=== PATIENT | female | born 1955 | race Caucasian/White ===

== ENCOUNTER 2018-11-30 08:45 | Day surgery (SDC) | payer OTHER ==
[2018-11-18 13:16] VITALS: BMI 29.9
--- NOTE | 2018-11-26 13:29 | HP ---
Admitting History and Physical - Primary Care Physician PCP: Nola Ramírez - Admission Chief Complaint: right upper back malignant melanoma of skin History of Present Illness: Patient is a 63 yo female noted to have a right upper back irregular mole accom by itching. The rim roller setter performed a shave bx (07/2018) which revealed a .3 mm melanoma Rico level II. The lesion extends into the lateral margin. The patient is now presenting for a WE of this right upper back melanoma with reconstruction. History Source: Patient Limitations to Obtaining History: No Limitations - Past Medical History Cardiovascular: Yes: HTN, Hyperlipdemia - Past Surgical History Past Surgical History: Yes: Hysterectomy (1983) - Smoking History Smoking history: Never smoked Aproximately how many cigarettes per day: 0 - Alcohol/Substance Use Hx Alcohol Use: Yes (rare) Home Medications - Allergies Allergies/Adverse Reactions: Allergies Allergy/AdvReac Type Severity Reaction Status Date / Time No Known Allergies Allergy Verified 11/18/18 13:01 - Home Medications Home Medications: Ambulatory Orders Aspirin [ASA] 81 mg PO DAILY 01/15/12 Amlodipine Besylate 5 mg PO DAILY 11/18/18 Atorvastatin Calcium 80 mg PO HS 11/18/18 Hydrochlorothiazide [Hctz -] 25 mg PO DAILY 11/18/18 Losartan Potassium 100 mg PO DAILY 11/18/18 Family Medical History Family History: Unremarkable Review of Systems - Review of Systems Integumentary: reports: Lesions (right upper back irregular mole with itching) Physical Examination Constitutional: Yes: Well Nourished Integumentary: Yes: Other (right upper back 12 x 12 mm irregular pigmented lesion with a scar from shave bx. No other satellite lesions noted on the skin. ) Problem List - Problems (1) Malignant melanoma Code(s): C43.9 - MALIGNANT MELANOMA OF SKIN, UNSPECIFIED Qualifiers: Laterality: right Assessment/Plan Plan: WE of right upper back malignant melanoma with reconstruction.
[2018-11-30] MEDS ORDERED: ONDANSETRON 4 MG/2 ML VIAL IVPUSH PRN (09:55)
[2018-11-30] MEDS ORDERED: KETOROLAC TROMETHAMINE 30 MG/1 ML VIAL IVPUSH PRN (09:55)
[2018-11-30] MEDS ORDERED: DEXTROSE 5%-0.45% SALINE 1,000 ML IV SCH (10:00)
[2018-11-30 11:04] VITALS: TEMP 97.6
--- NOTE | 2018-11-30 11:08 | OP ---
DATE OF OPERATION: 11/30/2018 PROCEDURE: Flap reconstruction of posterior trunk wound status post excision of malignant melanoma. PREOPERATIVE DIAGNOSIS: Malignant melanoma with resulting wound to trunk after wide local excision. POSTOPERATIVE DIAGNOSIS: Malignant melanoma with resulting wound to trunk after wide local excision. The procedure is performed in combination with a wide local excision of malignant melanoma to the posterior trunk by Dr. Nola Ramírez and his team. That portion of the procedure will be dictated separately by Dr. Nloa Ramírez. ANESTHESIA: Monitored sedation with a total of 20 mL of 1% lidocaine with 1:100,000 epinephrine injected locally into the tissues. I am called into the procedure at the completion of the wide local excision. At this point, the wound is copiously irrigated with normal saline and hemostasis meticulously achieved with Bovie cautery. The closure is positive for with superior and inferior advancement flaps excising Burow triangle laterally and medially for the closure to allow for advancement. The donor sites are closed with a series of interrupted buried deep dermal 3-0 Vicryl suture followed by a series of interrupted 3-0 Monocryl suture. The closure over the defect of the flaps is then closed 1st with a series of deep space occupying fascial sutures to the deep muscular surface with a series of interrupted buried 3.30 Vicryl suture. The skin is then closed with a series of interrupted buried deep dermal 3-0 Monocryl sutures followed by a running subcuticular 3-0 Monocryl suture. All tissues are pink and viable. Dressing is applied with full-length Steri-Strips 1/2 inch with 4 x 4 gauze and Hypafix tape. It should be noted that the flaps were mobilized in the subfascial plane both superiorly and inferiorly prior to closure and space obliteration. SHERINE HOOD M.D. [id number]
[2018-11-30 12:50] VITALS: BP 110/62; PULSE 64
--- NOTE | 2018-11-30 18:50 | OP ---
DATE OF OPERATION: 11/30/2018 PREOPERATIVE DIAGNOSIS: Right upper back melanoma. POSTOPERATIVE DIAGNOSIS: Right upper back melanoma. PROCEDURE: Right upper back radical wide excision. ANESTHESIA: IV sedation with local. ATTENDING SURGEON: Dominga Ramírez MD CONFIGURATION MANAGEMENT ARCHITECT: FRANCISCO Ramirez ESTIMATED BLOOD LOSS: Minimal. COMPLICATIONS: None. PROCEDURE: Patient was made aware of the risks and benefits of the procedure and consented. She was placed in a supine position on the operative table, and after IV sedation was administered, she was placed in the left lateral decubitus position and the operative site was prepped and draped in the usual sterile fashion. A transverse vertical incision was marked out and local anesthesia was administered with 1% lidocaine with epinephrine. Using sharp dissection, the incision was made and using electrocautery, taken down to the pectoralis fascia. This was then taken off the muscle and submitted with a short suture superior, long suture lateral. The wound was copiously irrigated with normal saline, hemostasis maintained by electrocautery. The procedure was then turned over to Dr. Santo Pretty, who did a plastic surgery closure. He will dictate that portion of the procedure. DOMINGA RAMÍREZ M.D. [id number]
--- NOTE | 2018-12-07 09:54 | PATH ---
Surgical Pathology Report Patient Name: ANTHONY MOE [facility]. Rec. #: [id number] /Age/Gender: 1955 (Age: 63) / F Account: [id number] Location: [facility] Taken: 11/30/2018 Received: 11/30/2018 Reported: 12/07/2018 Physicians: Nola Ramírez M.D. Specimen(s) Received RIGHT UPPER BACK WIDE EXCISION OF MELANOMA Clinical History Right upper back, melanoma Final Diagnosis BACK, RIGHT UPPER, WIDE EXCISION OF MELANOMA: MELANOMA IN SITU (MIS). (SEE NOTE) NO RESIDUAL INVASION IS IDENTIFIED. SURGICAL MARGINS ARE WIDELY CLEAR OF MIS (> 1 CM). DERMIS SHOWING SCAR WITH CHANGES OF PRIOR BIOPSY. SEBORRHEIC KERATOSIS. PATHOLOGIC STAGE (pTNM): pT1a (see note) Note: "pT" stage is based on prior biopsy from outside institution, which showed predominantly melanoma in situ with a 0.3 mm focus of invasion in the papillary dermis (0/mm2 mitoses, no ulceration; case # [id number]; our slide review ). Immunostains performed at [place], [place] ([id number]) show the following results: Melan-A and HMB-45 immunostains highlight the foci of melanoma in situ. No dermal invasion is identified. Electronically Signed Ria Schmitt M.D. Gross Description Received in formalin, labeled "right upper back, wide excision of melanoma." It is 7.2 x 3.7 cm ellipse of light wong skin excised to a depth of 1.8 cm. A long suture indicates the lateral margin and a short suture indicates the superior margin, per the surgeon. The surface of the skin displays two brown-black flat lesions, measuring 0.8 x 0.5 cm (lesion #1) and 0.6 x 0.5 cm (lesion #2), respectively. The margins are widely clear (>/= 1 cm) of the lesions. The specimen is inked as follows: Superior-blue, inferior-green, lateral tip-yellow, medial tip-red, deep-black. Cube Cutter sections are submitted in six cassettes as follows: 1,2- lesion #1; 3-deep, superior and inferior margins surrounding lesion #1; 4-lesion #2 with deep, superior and inferior margins; 5-medial tip; 6-lateral tip. AE/11/30/2018 ebram/11/30/2018
== END 2018-11-30 13:00 | disposition home or self-care (01) ==
LOC: FASU 08:45
PROVIDERS: ATTEND Surgery Surgical Oncology
PROC: 0JB70ZZ Excision of Back Subcutaneous Tissue and Fascia, Open Approach (ICD-10-PCS; principal; 2018-11-30 10:18)
DX: C43.59 Malignant melanoma of other part of trunk (principal)
CPT/HCPCS: 88307-TC

== ENCOUNTER 2020-10-25 14:46 | Emergency (ER) | payer OTHER ==
[2020-10-25 14:54] VITALS: BP 181/99; PULSE 95; TEMP 98.9; BMI 28.3
[2020-10-25] MEDS ORDERED: IBUPROFEN 600 MG TABLET (FP) PO ONE ×2 (15:24→15:30)
[2020-10-25] MEDS ORDERED: AMOX TR/POT CLAV 875MG/125MG TABLETS (FP) PO ONE (15:24)
[2020-10-25] MEDS ORDERED: AMOX TR/POT CLAV 875MG/125MG TABLETS (FP) ONE (15:30)
== END 2020-10-25 15:38 | disposition home or self-care (01) ==
LOC: FER 14:46
DX: K11.20 Sialoadenitis, unspecified (principal)
CPT/HCPCS: 99283-25

== ENCOUNTER 2021-04-12 04:42 | Day surgery (SDC) | payer OTHER ==
[2021-04-09 15:35] VITALS: BMI 29.5
[2021-04-12 11:45] VITALS: BP 128/78; PULSE 72; TEMP 97.5
== END 2021-04-12 11:35 | disposition home or self-care (01) ==
LOC: JASU-ENDO 04:42
PROVIDERS: ATTEND Internal Medicine Gastroenterology
PROC: 0DBN8ZX Excision of Sigmoid Colon, Via Natural or Artificial Opening Endoscopic, Diagnostic (ICD-10-PCS; principal; 2021-04-12 10:30)
DX: Z12.11 Encounter for screening for malignant neoplasm of colon (principal); K63.5 Polyp of colon; K57.30 Diverticulosis of large intestine without perforation or abscess without bleeding; K64.8 Other hemorrhoids; Z86.010 Personal history of colon polyps; Z80.0 Family history of malignant neoplasm of digestive organs
CPT/HCPCS: 88305-TC

== ENCOUNTER 2021-06-28 04:46 | Day surgery (SDC) | payer OTHER ==
[2021-06-24 13:56] VITALS: BMI 29.5
[2021-06-28 11:44] VITALS: TEMP 97.7
[2021-06-28 12:14] VITALS: BP 136/81; PULSE 70
== END 2021-06-28 12:28 | disposition home or self-care (01) ==
LOC: JASU-ENDO 04:46
PROVIDERS: ATTEND Internal Medicine Gastroenterology
PROC: 0DB68ZX Excision of Stomach, Via Natural or Artificial Opening Endoscopic, Diagnostic (ICD-10-PCS; 2021-06-28)
PROC: 0DB28ZX Excision of Middle Esophagus, Via Natural or Artificial Opening Endoscopic, Diagnostic (ICD-10-PCS; 2021-06-28)
PROC: 0DB38ZX Excision of Lower Esophagus, Via Natural or Artificial Opening Endoscopic, Diagnostic (ICD-10-PCS; 2021-06-28)
PROC: 0DB98ZX Excision of Duodenum, Via Natural or Artificial Opening Endoscopic, Diagnostic (ICD-10-PCS; principal; 2021-06-28 10:45)
DX: K29.51 Unspecified chronic gastritis with bleeding (principal)
CPT/HCPCS: 82962; 88305-TC; 88342-TC